=== PATIENT | male | born 1930 | race Caucasian/White ===

== ENCOUNTER 2017-02-01 10:55 | Inpatient (IN) | payer OTHER ==
[~2017-02-01] VITALS: Ht 172.7 cm; Wt 64.2 kg
[~2017-02-01 10:55] MED LIST: ALB2.5NEB INH; ALBU17IN INH; ARTI99.0 OU; FISH1000 PO; GEMF600T PO; GLUC500T53 PO; GUAI20TA PO; LEVA1TAB PO; LEVA1TAB2 PO; LEVO75TA4 PO; LORA10TA2 PO; OMEP20CA3 PO; PRED10PA PO; REFR0.5D8 OU; REFR1DRO8 OU; SILD50TA PO; SPIR1CAP INH; SYMB16INH INH; TEAR1SOL3 OU; VITMTA PO; [UNRECOGNIZED DRUG - CODE] OU
[2017-02-01] MEDS ORDERED: NS 1,000 ML IV SCH (11:06)
[2017-02-01] MEDS ORDERED: METAL LOCK LOOP XX ONE (11:12)
[2017-02-01] MEDS ORDERED: methylPREDNISolone INJ 125 MG/2 ML VIAL (J2930) IV ONE (11:15)
[2017-02-01] MEDS: IPRATROPIUM 0.5MG/ALBUTEROL 2.5MG INH SOL UD 3ML (DUONEB)(J7620) NEB PRN ×3 (11:42→12:04)
--- NOTE | 2017-02-01 11:44 | REP ---
Clinical: Cough and dyspnea. Comparison: 11/20/2015. Findings: Mediastinum and cardiac silhouette are within normal limits and stable. Diffuse chronic interstitial changes and fibrosis/scarring similar to prior examination. Subtle superimposed right upper lobe process cannot be excluded. No pneumothorax. No obvious effusion. Skeletal structures demonstrate osteopenia and degenerative changes. Impression: Chronic changes. Superimposed right upper lobe process cannot be excluded. Signed by Kvng Min MD 02/01/2017 11:35 A
[2017-02-01 11:56] LABS: ABG BASE EXCESS -7.2 (-2.0-2.0); ABG HCO3 16.5 MEQ/L (22.0-26.0); ABG PARTIAL PRESSURE CO2 27.9 mmHg (35.0-45.0); ABG STANDARD HCO3 18.5 MEQ/L (22.0-26.0); ABG TOTAL CO2 17.4 MEQ/L (23.0-31.0); ABG pH (ARTERIAL) 7.391 UNITS (7.350-7.450)
[2017-02-01 11:57] LABS: BASO % 0.4 % (0.0-1.0); EOS # 0.2 10^3/uL (0.0-0.50); EOS % 1.7 % (0.0-3.0); IMMATURE GRANULOCYTE % 0.5 % (0-0); MEAN CORPUSCULAR HEMOGLOBIN 30.8 pg (27.0-33.0); MEAN CORPUSCULAR HGB CONC 32.6 g/dl (32.0-36.5); MEAN CORPUSCULAR VOLUME 94.6 fl (80.0-96.0); MONO # 1.6 10^3/uL (0.0-0.8); MONO % 15.2 % (0.0-5.0); NEUTROPHILS # 6.5 10^3/uL (1.8-7.7); NEUTROPHILS % 63.2 % (36.0-66.0); PLATELET COUNT, AUTOMATED 136 10^3/uL (150-450); RED CELL DISTRIBUTION WIDTH 13.8 % (11.5-14.5); WHITE BLOOD COUNT 10.3 10^3/uL (4.0-10.0)
[2017-02-01 12:08] VITALS: O2SAT 98
[2017-02-01 12:08] LABS: INR 1.26
[2017-02-01 12:36] LABS: ALBUMIN 2.5 GM/DL (3.2-5.2); ALBUMIN/GLOBULIN RATIO 0.47 (1.00-1.93); ALKALINE PHOSPHATASE 233 U/L (45-117); ANION GAP 10 MEQ/L (8-16); AST/SGOT 53 U/L (7-37); BILIRUBIN,DIRECT 0.8 MG/DL (0.0-0.2); BILIRUBIN,TOTAL 1.5 MG/DL (0.2-1.0); BLOOD UREA NITROGEN 31 MG/DL (7-18); CALCIUM LEVEL 8.1 MG/DL (8.8-10.2); CARBON DIOXIDE LEVEL 22 MEQ/L (21-32); CHLORIDE LEVEL 107 MEQ/L (98-107); CREATININE FOR GFR 1.83 MG/DL (0.70-1.30); GLOMERULAR FILTRATION RATE 37.6 (>35); GLUCOSE, FASTING 94 MG/DL (83-110); POTASSIUM SERUM 4.5 MEQ/L (3.5-5.1); SODIUM LEVEL 139 MEQ/L (136-145); TOTAL PROTEIN 7.8 GM/DL (6.4-8.2)
[2017-02-01 12:41] LABS: ALT/SGPT 51 U/L (12-78)
[2017-02-01] MEDS ORDERED: CEFTRIAXONE SOD 1 GM in APPROPRIATE DILUENT 1 EA IV ONE (13:45)
[2017-02-01] MEDS ORDERED: AZITHROMYCIN INJ 500 MG, VIAL MATE ADAPTER 1 EACH in D5W 250 ML IV ONE (13:45)
--- NOTE | 2017-02-01 14:05 | REP ---
CT CHEST WITHOUT CONTRAST: HISTORY: Right upper lobe mass. Comparison chest CT studies November 20, 2015. Comparison is made with today's portable chest x-ray showing density in the right upper lobe region. FINDINGS: There is progressive collapse and peribronchial consolidation in the right upper lobe superiorly when compared with the CT study from November 20, 2015. Air bronchograms are seen and there is evidence of bronchiectasis in the right upper lobe. There is some increased subpleural consolidation as well posteriorly compared to the prior study. The infiltrate observed laterally in the left upper lobe on the November 24, 2015 study has resolved except for some subpleural fibrosis and a triangular configuration. There is evidence of COPD and emphysema as before. The trachea is somewhat enlarged measuring up to 2.9 cm in greatest AP dimension. This is unchanged. No significant pulmonary nodule is appreciated. No bony destructive lesion is seen. No adrenal lesion is observed. A fairly large calcified gallstone is seen in the gallbladder. The stone measures 1.4 cm in diameter. There are one or two granulomatous calcifications in the spleen. Vascular calcification is seen affecting the coronary arteries. IMPRESSION: Increased consolidation and some collapse in a leslie-bronchovascular distribution in the right upper lobe compared to the November 20, 2015 prior study. The appearance suggests inflammatory disease. There is evidence of bronchiectasis and COPD. The trachea is mildly enlarged. Cholelithiasis. Signed by Jani Anguiano MD 02/01/2017 02:47 P
[2017-02-01] MEDS ORDERED: NS 1,000 ML IV ONE (14:15)
[2017-02-01] MEDS ORDERED: TYLE325T5 PO (14:27)
[2017-02-01] MEDS ORDERED: ATOR40TA75 PO (14:27)
--- NOTE | 2017-02-01 14:44 | HPEPDOC ---
[facility] Medical History & Physical Date of Admission Feb 01, 2017 History and Physical ATTENDING: Dr. Haile PCP: Dr [facility] Pulmonary. Dr Jarrell. Cardiology. Dr Flores. Rheumatology. [facility] [place]. CC: SOB HPI: 86yoM with a past medical history significant for COPD, h/o pneumonia, prior tobacco use who presented to ED from reporting SOB. Pt reports he had gone to visit family on and there were children with "colds". He states the following day he felt sick, with SOB, productive cough which has been yellow-green, intermittent fever since last Monday (100.2- 100.7). Noticed some anterior CP today. Generally feeling fatigued. Son states he is usually active at home, cuts own wood, goes hunting, ADLS on own. Denies any VEGA, palpitations, abdominal pain, N/V/D or changes in bowel or bladder habits. Upon presentation to the hospital the patient was found to have CAP, thus the hospitalist team was consulted. PMHx: COPD H/O recurrent Pn hypothyroid Seasonal allergies RA GERD Anemia Chronic disease First degree AVB H/O PUD [place], wears aids. edentulous. poor appetite. Ensure at home. 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 4 related to Ca Children: 3Alive, well. 2 , [employer] [place], Cirrhosis. ROS: As noted in HPI, otherwise 11pt ROS of systems reviewed and unremarkable. PE: GEN: 86yoM, appears stated age. Unkept appearing. No acute distress. Alert and oriented x 3. Pleasant, interactive. HEENT: Normocephalic, atraumatic. Pupils are equal, round, and reactive to light. Extraocular movements are intact. No nystagmus appreciated. Sclera are nonicteric. Conjunctiva without injection. Nose midline. Hearing aids b/l. No facial asymmetry. Moist mucous membranes. edentulous . Pharynx pink and moist. Neck supple, trachea midline. No lymphadenopathy or thyromegaly appreciated. CHEST: Regular rate and rhythm, +S1, +S2 LUNGS: Decreased BS bilaterally with insp/exp wheezes diffusely, no rales, or rhonchi. No accessory muscle use. ABD: Round, soft, non-tender, non-distended. +Bowel sounds throughout. No rebound or guarding. No costovertebral angle tenderness. EXT: Pulses 2+ bilaterally dorsalis pedis and radial. No lower extremity edema appreciated. SKIN: [place], dry, warm. Capillary refill <2sec. No rashes. NEURO: Alert and oriented x 3. Cranial nerves III-XII are intact. No focal deficits appreciated. CXR: Chronic changes. Superimposed right upper lobe process cannot be excluded. CT: Chest Increased consolidation and some collapse in a peribronchovascular distribution in the right upper lobe compared to the November 20, 2015 prior study. The appearance suggests inflammatory disease. There is evidence of bronchiectasis and COPD. The trachea is mildly enlarged. Cholelithiasis. EKG: SR 74 bpm. BLOOD CULTURES: x2 pending SC pending. Rapid Flu neg. LA 1.6 A&P: 86yoM with a past medical history significant for COPD, h/o pneumonia, prior tobacco use who presented to ED from reporting SOB. Pt reports he had gone to visit family on and there were children with "colds". He states the following day he felt sick, with SOB, productive cough which has been yellow-green, intermittent fever since last Monday (100.2- 100.7). Noticed some anterior CP today. Generally feeling fatigued. 1. The patient will be admitted to M/S for at least [address] Haile 's service. Pt is discussed with Dr Boucher. 2. CAP. BC x 2 pending. SC pending. Add Respiratory panel. Supplemental O2. Nebs. IV Rocephin/Z max. 3. COPD/COPD exac. O2 as needed. Nebs. IV solumedrol in ED 125mg. Continue Solumedrol 60mg Q8hr. 4. Chest pain. Serial CIP/Troponin. Cont statin. 5. Hypothyroid. Supplement. 6. Seasonal allergies. Claritin. 7. GERD. PPI. 8. HLD. Statin. 9. CKD. prior baseline in system appears to be 1.4-1.6. IVF x 1 liter in ED. 1.83 currently. Monitor labs. 10. Poor po intake. Supplements with ensure 3 x per day at home, will continue. Request nutrition Clt. BMI 21.5. 11. Anemia of chronic disease. Appears to be at baseline Hgb 9-10. Monitor daily labs. 12. DVT prophylaxis. Lovenox renally dosed. Monitor CBC. 13. Elevated LFT. Add hepatitis profile. The patient is a Full code. Vital Signs Vital Signs Date Time Temp Pulse Resp B/P (MAP) Pulse Ox O2 Delivery O2 Flow Rate FiO2 02/01/17 14:17 84 97 02/01/17 14:02 119/59 (79) 02/01/17 13:32 98.7 18 Room Air Laboratory Data Labs 24H Laboratory Tests 2 02/01/17 11:40: Immature Granulocyte % (Auto) 0.5H, White Blood Count 10.3H, Red Blood Count 3.15L, Hemoglobin 9.7L, Hematocrit 29.8L, Mean Corpuscular Volume 94.6, Mean Corpuscular Hemoglobin 30.8, Mean Corpuscular Hemoglobin Concent 32.6, Red Cell Distribution Width 13.8, Platelet Count 136L, Neutrophils (%) (Auto) 63.2, Lymphocytes (%) (Auto) 19.0L, Monocytes (%) (Auto) 15.2H, Eosinophils (%) (Auto ) 1.7, Basophils (%) (Auto) 0.4, Neutrophils # (Auto) 6.5, Lymphocytes # (Auto) 2.0, Monocytes # (Auto) 1.6H, Eosinophils # (Auto) 0.2, Basophils # (Auto) 0.0, Immature Granulocyte # (Auto) 0.1H, Nucleated Red Blood Cells % (auto) 0.0, Prothrombin Time 16.1H, Prothromb Time International Ratio 1.26, Anion Gap 10, Glomerular Filtration Rate 37.6, Lactic Acid Level 1.6, Calcium Level 8.1L, Aspartate Amino Transf (AST/SGOT) 53H, Alanine Aminotransferase (ALT/SGPT) 51, Alkaline Phosphatase 233H, Total Bilirubin 1.5H, Direct Bilirubin 0.8H, Total Creatine Kinase 138, Creatine Kinase MB 1.3, Creatine Kinase MB Relative Index 0.94, Troponin I < 0.02, Total Protein 7.8, Albumin 2.5L, Albumin/Globulin Ratio 0.47L, Thyroid Stimulating Hormone (TSH) 1.060 02/01/17 11:43: Blood Gas Bicarbonate Standard 18.5L, Arterial Blood pH 7.391, Arterial Blood Partial Pressure CO2 27.9L, Arterial Blood Partial Pressure O2 73.0L, Arterial Blood Total CO2 17.4L, Arterial Blood HCO3 16.5L, Arterial Blood Base Excess - 7.2L, Arterial Blood Oxygen Saturation 94.7L CBC/BMP Laboratory Tests 02/01/17 11:40 Red Blood Count 3.15 L, Mean Corpuscular Volume 94.6, Mean Corpuscular Hemoglobin 30.8, Mean Corpuscular Hemoglobin Concent 32.6, Red Cell Distribution Width 13.8, Neutrophils (%) (Auto) 63.2, Lymphocytes (%) (Auto) 19.0 L, Monocytes (%) (Auto) 15.2 H, Eosinophils (%) (Auto) 1.7, Basophils (%) ( Auto) 0.4, Neutrophils # (Auto) 6.5, Lymphocytes # (Auto) 2.0, Monocytes # (Auto ) 1.6 H, Eosinophils # (Auto) 0.2, Basophils # (Auto) 0.0 Microbiology Microbiology 02/01/17 Blood Culture, Received Pending 02/01/17 Blood Culture, Received Pending 02/01/17 Gram Stain, Received Pending 02/01/17 Sputum Culture, Received Pending 02/01/17 Influenza Virus Type A Antigen - Final, Complete 02/01/17 Influenza Virus Type B Antigen - Final, Complete Home Medications Scheduled Atorvastatin Calcium (Atorvastatin Calcium) 40 Mg Tab, 40 MG PO QHS Budesonide/Formoterol (Symbicort 160-4.5 Mcg/Act) 60 Puff/Inhaler Aers, 2 PUFF INH BID Carboxymethylcellulose Sod (Refresh 1.4-0.6 %) 1 Ea Ana, 1 DROP OU QHS Fish Oil (Fish Oil) 1,000 Mg Cap, 2,000 MG PO DAILY Glucosamine Hydrochloride (Glucosamine) 500 Mg Tab, 1,000 MG PO DAILY Levothyroxine Sodium (Synthroid) 75 Mcg Tab, 75 MCG PO DAILY Loratadine (Loratadine) 10 Mg Tab, 10 MG PO DAILY Multivitamins *[facility] STOCKED* (Thera M Plus *[facility] STOCKED*) 1 Tab Tab, 1 TAB PO DAILY Omeprazole (Omeprazole) 20 Mg Cap, 20 MG PO BID Scheduled PRN Acetaminophen (Tylenol) 325 Mg Tab, 325 MG PO Q4H PRN for PAIN Albuterol Sulfate (Albuterol Sulfate) 2.5 Mg/0.5 Ml Neb, 2.5 MG INH QID PRN for SHORTNESS OF BREATH Albuterol Sulfate (Ventolin Hfa) 200 Puff/8 Gm Aers, 2 PUFF INH Q4H PRN for SHORTNESS OF BREATH Artificial Tears (Artificial Tears) 1.4 % Ana, 1 DROP OU QID PRN for DRY EYES Sildenafil Citrate (Viagra) 50 Mg Tab, 50 MG PO PRN PRN for SEXUAL ACTIVITY Allergies Coded Allergies: No Known Allergies (Verified , 09/09/02) Aditi Landon Feb 01, 2017 14:44
[2017-02-01] MEDS ORDERED: IPRATROPIUM 0.5MG/ALBUTEROL 2.5MG INH SOL UD 3ML (DUONEB)(J7620) NEB PRN (15:30)
[2017-02-01] MEDS ORDERED: ACETAMINOPHEN TAB 650MG DOSE (2X325MG) PO PRN (15:30)
[2017-02-01] MEDS ORDERED: POLYVINYL ALCOHOL OPHTH SOLN 15 ML(LIQUITEARS) OU PRN (15:30)
[2017-02-01 15:40] VITALS: BP 126/64
[2017-02-01] MEDS: IPRATROPIUM 0.5MG/ALBUTEROL 2.5MG INH SOL UD 3ML (DUONEB)(J7620) NEB SCH ×2 (17:14→20:00)
[2017-02-01] MEDS: ATORVASTATIN 20 MG TAB PO SCH (20:38)
[2017-02-01] MEDS: OMEPRAZOLE 20 MG CAP PO SCH (20:38)
--- NOTE | 2017-02-01 20:40 | ECGEPIP ---
Stationary ECG Study [facility] - ED Test Date: 2017-02-01 Pat Name: NICOLAS TINSLEY Department: Room: - Gender: M Surgical Specialist: gisselle : [id number] Requested By: Chloe Garduno Order Number: [id number] Reading MD: Chloe Garduno Measurements Intervals [place] Rate: 74 P: 76 NM: 182 QRS: 52 QRSD: 78 T: 61 QT: 352 QTc: 392 Interpretive Statements SINUS RHYTHM SIMILAR 11/20/15 Electronically Signed On 02-01-2017 20:40:15 EST by Chloe Garduno
[2017-02-01] MEDS: ENOXAPARIN 30 MG/0.3 ML SYR (J1650) SC SCH (20:41)
[2017-02-01] MEDS: methylPREDNISolone INJ 125 MG/2 ML VIAL (J2930) IV SCH (20:48)
[2017-02-01 22:00] VITALS: BP 126/56
[2017-02-02] MEDS: IPRATROPIUM 0.5MG/ALBUTEROL 2.5MG INH SOL UD 3ML (DUONEB)(J7620) NEB SCH ×6 (01:15→20:00)
[2017-02-02] MEDS: LEVOTHYROXINE 75MCG TABLET (0.075MG) PO SCH (04:34)
[2017-02-02] MEDS: methylPREDNISolone INJ 125 MG/2 ML VIAL (J2930) IV SCH ×3 (04:34→20:00)
[2017-02-02 06:00] VITALS: BP 119/63
[2017-02-02 06:52] LABS: BASO % 0.1 % (0.0-1.0); IMMATURE GRANULOCYTE % 2.2 % (0-0); LYMPH # 1.6 10^3/uL (1.5-4.5); LYMPH % 16.4 % (24.0-44.0); MEAN CORPUSCULAR HEMOGLOBIN 30.3 pg (27.0-33.0); MEAN CORPUSCULAR HGB CONC 32.7 g/dl (32.0-36.5); MEAN CORPUSCULAR VOLUME 92.7 fl (80.0-96.0); MONO # 0.7 10^3/uL (0.0-0.8); MONO % 6.6 % (0.0-5.0); NEUTROPHILS # 7.3 10^3/uL (1.8-7.7); NEUTROPHILS % 74.7 % (36.0-66.0); PLATELET COUNT, AUTOMATED 124 10^3/uL (150-450); RED CELL DISTRIBUTION WIDTH 13.7 % (11.5-14.5); WHITE BLOOD COUNT 9.8 10^3/uL (4.0-10.0)
[2017-02-02 07:21] LABS: ALBUMIN/GLOBULIN RATIO 0.36 (1.00-1.93); BILIRUBIN,TOTAL 0.4 MG/DL (0.2-1.0); CALCIUM LEVEL 7.9 MG/DL (8.8-10.2); CREATININE FOR GFR 1.56 MG/DL (0.70-1.30); GLOMERULAR FILTRATION RATE 45.1 (>35); POTASSIUM SERUM 4.3 MEQ/L (3.5-5.1); TOTAL PROTEIN 7.6 GM/DL (6.4-8.2)
[2017-02-02] MEDS: LORATADINE 10 MG TAB PO SCH (08:32)
[2017-02-02] MEDS: OMEPRAZOLE 20 MG CAP PO SCH ×2 (08:32→20:00)
--- NOTE | 2017-02-02 10:10 | IPNPDOC ---
Date Seen The patient was seen on 02/02/17. Progress Note SUBJECTIVE: Patient is a 86-year-old male with past medical history of : COPD; history of recurrent pneumonia; hypothyroidism; seasonal allergies; rheumatoid arthritis; GERD; anemia of chronic disease; first degree AV heart block; history of PUD; hard of hearing, wears hearing aids; edentulous; poor appetite, Ensure at home; CKD; presenting with shortness of breath on 2016. Today, he was seen bedside and initially stated he had no complaints. He states he is not certain why he is still in the hospital. He does complain of some shortness of breath and chest pain when coughing, but not at rest. He states he does have some lightheadedness upon standing, but denies lightheadedness/dizziness when seated, when lying down, and once he gets moving. He denies headache, difficulty breathing, abdominal pain, nausea, vomiting. OBJECTIVE PHYSICAL EXAMINATION: VITAL SIGNS: Please see below. GENERAL: Elderly male seated on edge of bed in no apparent distress. HEENT: Atraumatic, normocephalic. EOMI. Neck supple CARDIOVASCULAR: Normal S1/S2, no rubs, murmurs, gallops noted. RESPIRATORY: Clear to auscultation in all sin bilaterally ABDOMINAL: Soft, non-tender, no peritoneal signs, normoactive bowel sounds EXTREMITIES: Moves all extremities. No appreciated peripheral edema NEUROLOGICAL: CN II-XII grossly intact PSYCHOLOGICAL: Pleasant mood and affect. Alert and conversant. LABORATORY DATA: Please see below. MICROBIOLOGY: Please see below. IMAGING: Chest X-Ray Impression: Chronic changes. Superimposed right upper lobe process cannot be excluded. Chest CT Impression: Increased consolidation and some collapse in a leslie-bronchovascular distribution in the right upper lobe compared to the November 20, 2015 prior study. The appearance suggests inflammatory disease. There is evidence of bronchiectasis and COPD. The trachea is mildly enlarged. Cholelithiasis. DVT prophylaxis ordered?: Yes, Lovenox 30mg subcutaneous every day ASSESSMENT AND PLAN: This is a 86-year-old with community-acquired pneumonia. PROBLEMS: 1. Community acquired pneumonia: - Blood cultures x2 still pending - Sputum culture pending. - Respiratory panel negative for influenza A & B - Azithromycin 500mg IV every day - Ceftriaxone 2g every IV every day 3. COPD/COPD exacerbation - Oxygen as needed. - Duoneb every 4 hours - Duoneb every 2 hours as needed for shortness of breath or wheezing - Methylprednisolone 60mg IV every 8 hours 4. Chest pain. - Serial troponins have all been negative 5. Elevated LFT - Hepatitis panel pending 6. Hyperlipidemia - Atorvastatin 40 mg by mouth every day at bedtime 7. Hypothyroid - Levothyroxine 75 mcg by mouth every day at 0600. 8. Seasonal allergies - Loratadine 10 mg by mouth every day 9. GERD - Omeprazole 20mg by mouth twice per day 10. CKD - Prior baseline in system appears to be 1.4-1.6. - Creatinine decreased from 1.83 to 1.56. 11. Poor PO intake - Supplements with ensure 3 x per day at home, will continue - Nutrition consult. Appreciate their recommendations: Ensure original with each meal, monitoring meal consumption. If meal consumption is decreased, trial ensure enlive between meals to promote whole food intake during meal times 12. Anemia of chronic disease - Appears to be at baseline Hgb 9-10 - Monitor daily labs 13. DVT prophylaxis - Lovenox renally dosed - Monitor CBC DISPOSITION: Medical-surgical, pending discharge likely tomorrow. VS, I&O, 24H, [facility] Vital Signs/I&O Vital Signs Date Time Temp Pulse Resp B/P (MAP) Pulse Ox O2 Delivery O2 Flow Rate FiO2 02/02/17 06:00 97.5 78 18 119/63 (81) 96 Room Air I&O- Last 24 Hours up to 6 AM 02/03/17 06:00 Intake Total 240 ml Output Total 0 ml Balance 240 ml Laboratory Data 24H LABS Laboratory Tests 2 02/01/17 11:40: Immature Granulocyte % (Auto) 0.5H, White Blood Count 10.3H, Red Blood Count 3.15L, Hemoglobin 9.7L, Hematocrit 29.8L, Mean Corpuscular Volume 94.6, Mean Corpuscular Hemoglobin 30.8, Mean Corpuscular Hemoglobin Concent 32.6, Red Cell Distribution Width 13.8, Platelet Count 136L, Neutrophils (%) (Auto) 63.2, Lymphocytes (%) (Auto) 19.0L, Monocytes (%) (Auto) 15.2H, Eosinophils (%) (Auto ) 1.7, Basophils (%) (Auto) 0.4, Neutrophils # (Auto) 6.5, Lymphocytes # (Auto) 2.0, Monocytes # (Auto) 1.6H, Eosinophils # (Auto) 0.2, Basophils # (Auto) 0.0, Immature Granulocyte # (Auto) 0.1H, Nucleated Red Blood Cells % (auto) 0.0, Prothrombin Time 16.1H, Prothromb Time International Ratio 1.26, Anion Gap 10, Glomerular Filtration Rate 37.6, Lactic Acid Level 1.6, Calcium Level 8.1L, Aspartate Amino Transf (AST/SGOT) 53H, Alanine Aminotransferase (ALT/SGPT) 51, Alkaline Phosphatase 233H, Total Bilirubin 1.5H, Direct Bilirubin 0.8H, Total Creatine Kinase 138, Creatine Kinase MB 1.3, Creatine Kinase MB Relative Index 0.94, Troponin I < 0.02, Total Protein 7.8, Albumin 2.5L, Albumin/Globulin Ratio 0.47L, Thyroid Stimulating Hormone (TSH) 1.060 02/01/17 11:43: Blood Gas Bicarbonate Standard 18.5L, Arterial Blood pH 7.391, Arterial Blood Partial Pressure CO2 27.9L, Arterial Blood Partial Pressure O2 73.0L, Arterial Blood Total CO2 17.4L, Arterial Blood HCO3 16.5L, Arterial Blood Base Excess - 7.2L, Arterial Blood Oxygen Saturation 94.7L 02/01/17 18:03: Total Creatine Kinase 208, Creatine Kinase MB 2.7, Creatine Kinase MB Relative Index 1.29, Troponin I < 0.02 02/02/17 01:59: Total Creatine Kinase 273, Creatine Kinase MB 5.0H, Creatine Kinase MB Relative Index 1.83, Troponin I < 0.02 02/02/17 06:38: Immature Granulocyte % (Auto) 2.2H, White Blood Count 9.8, Red Blood Count 2.74L , Hemoglobin 8.3L, Hematocrit 25.4L, Mean Corpuscular Volume 92.7, Mean Corpuscular Hemoglobin 30.3, Mean Corpuscular Hemoglobin Concent 32.7, Red Cell Distribution Width 13.7, Platelet Count 124L, Neutrophils (%) (Auto) 74.7H, Lymphocytes (%) (Auto) 16.4L, Monocytes (%) (Auto) 6.6H, Eosinophils (%) (Auto) 0.0, Basophils (%) (Auto) 0.1, Neutrophils # (Auto) 7.3, Lymphocytes # (Auto) 1.6, Monocytes # (Auto) 0.7, Eosinophils # (Auto) 0.0, Basophils # (Auto) 0.0, Immature Granulocyte # (Auto) 0.2H, Nucleated Red Blood Cells % (auto) 0.0, Anion Gap 10, Glomerular Filtration Rate 45.1, Blood Urea Nitrogen 34H, Creatinine 1.56H, Sodium Level 143, Potassium Level 4.3, Chloride Level 113H, Carbon Dioxide Level 20L, Calcium Level 7.9L, Aspartate Amino Transf (AST/SGOT) 75H, Alanine Aminotransferase (ALT/SGPT) 57, Alkaline Phosphatase 181H, Total Bilirubin 0.4#, Total Protein 7.6, Albumin 2.0L, Albumin/Globulin Ratio 0.36L CBC/BMP Laboratory Tests 02/01/17 11:40 Red Blood Count 3.15 L, Mean Corpuscular Volume 94.6, Mean Corpuscular Hemoglobin 30.8, Mean Corpuscular Hemoglobin Concent 32.6, Red Cell Distribution Width 13.8, Neutrophils (%) (Auto) 63.2, Lymphocytes (%) (Auto) 19.0 L, Monocytes (%) (Auto) 15.2 H, Eosinophils (%) (Auto) 1.7, Basophils (%) ( Auto) 0.4, Neutrophils # (Auto) 6.5, Lymphocytes # (Auto) 2.0, Monocytes # (Auto ) 1.6 H, Eosinophils # (Auto) 0.2, Basophils # (Auto) 0.0 02/02/17 06:38 Red Blood Count 2.74 L, Mean Corpuscular Volume 92.7, Mean Corpuscular Hemoglobin 30.3, Mean Corpuscular Hemoglobin Concent 32.7, Red Cell Distribution Width 13.7, Neutrophils (%) (Auto) 74.7 H, Lymphocytes (%) (Auto) 16.4 L, Monocytes (%) (Auto) 6.6 H, Eosinophils (%) (Auto) 0.0, Basophils (%) ( Auto) 0.1, Neutrophils # (Auto) 7.3, Lymphocytes # (Auto) 1.6, Monocytes # (Auto ) 0.7, Eosinophils # (Auto) 0.0, Basophils # (Auto) 0.0, Calcium Level 7.9 L, Aspartate Amino Transf (AST/SGOT) 75 H, Alanine Aminotransferase (ALT/SGPT) 57, Alkaline Phosphatase 181 H, Total Bilirubin 0.4 #, Total Protein 7.6, Albumin 2.0 L Microbiology Microbiology 02/01/17 Blood Culture, Received Pending 02/01/17 Blood Culture, Received Pending 02/01/17 Gram Stain - Final, Resulted 02/01/17 Sputum Culture, Resulted Pending 02/01/17 Influenza Virus Type A Antigen - Final, Complete 02/01/17 Influenza Virus Type B Antigen - Final, Complete TAWANNA IRVIN DO Feb 02, 2017 09:01
[2017-02-02 14:00] VITALS: BP_SYST 104; BP_SYST 121; BP_DIAS 58; BP_DIAS 61
[2017-02-02] MEDS ORDERED: CEFTRIAXONE SOD 2 GM in APPROPRIATE DILUENT 1 EA IV SCH (14:00)
[2017-02-02] MEDS ORDERED: AZITHROMYCIN INJ 500 MG, VIAL MATE ADAPTER 1 EACH in D5W 250 ML IV SCH (15:00)
[2017-02-02] MEDS: ATORVASTATIN 20 MG TAB PO SCH (20:00)
[2017-02-02] MEDS: ENOXAPARIN 30 MG/0.3 ML SYR (J1650) SC SCH (20:01)
[2017-02-02 22:00] VITALS: BP 113/73
[2017-02-03] MEDS: IPRATROPIUM 0.5MG/ALBUTEROL 2.5MG INH SOL UD 3ML (DUONEB)(J7620) NEB SCH ×3 (04:00→07:25)
[2017-02-03] MEDS: methylPREDNISolone INJ 125 MG/2 ML VIAL (J2930) IV SCH (05:13)
[2017-02-03] MEDS: LEVOTHYROXINE 75MCG TABLET (0.075MG) PO SCH (05:13)
[2017-02-03 06:00] VITALS: BP 128/66
[2017-02-03] MEDS ORDERED: BACITAB PO (07:12)
[2017-02-03] MEDS ORDERED: AVEL1TAB3 PO (07:12)
[2017-02-03] MEDS ORDERED: MOXIFLOXACIN 400 MG TAB PO ONE (07:15)
[2017-02-03 07:47] LABS: BASO % 0.2 % (0.0-1.0); IMMATURE GRANULOCYTE % 1.9 % (0-0); LYMPH # 1.8 10^3/uL (1.5-4.5); LYMPH % 14.1 % (24.0-44.0); MEAN CORPUSCULAR HGB CONC 33.3 g/dl (32.0-36.5); MONO # 0.7 10^3/uL (0.0-0.8); MONO % 5.1 % (0.0-5.0); NEUTROPHILS # 10.2 10^3/uL (1.8-7.7); NEUTROPHILS % 78.7 % (36.0-66.0); PLATELET COUNT, AUTOMATED 143 10^3/uL (150-450); RETIC HEMOGLOBIN EQUIVALENT 26.3 pg (24-36); RETICULOCYTE % 0.9 % (0.5-1.5)
[2017-02-03 08:12] LABS: REASON FOR REVIEW COMPREHENSIVE REVIEW
[2017-02-03 08:21] LABS: ALBUMIN 2.2 GM/DL (3.2-5.2); ALBUMIN/GLOBULIN RATIO 0.39 (1.00-1.93); ALKALINE PHOSPHATASE 185 U/L (45-117); ALT/SGPT 209 U/L (12-78); ANION GAP 8 MEQ/L (8-16); AST/SGOT 304 U/L (7-37); BILIRUBIN,TOTAL 0.3 MG/DL (0.2-1.0); BLOOD UREA NITROGEN 40 MG/DL (7-18); CALCIUM LEVEL 8.2 MG/DL (8.8-10.2); CARBON DIOXIDE LEVEL 20 MEQ/L (21-32); CHLORIDE LEVEL 114 MEQ/L (98-107); CREATININE FOR GFR 1.78 MG/DL (0.70-1.30); FERRITIN 1659 NG/ML (26-388); GLOMERULAR FILTRATION RATE 38.8 (>35); GLUCOSE, FASTING 120 MG/DL (83-110); PERCENT SATURATION 67.4 % (19.7-50.0); POTASSIUM SERUM 4.5 MEQ/L (3.5-5.1); SODIUM LEVEL 142 MEQ/L (136-145); TOTAL IRON BINDING CAPACITY 144 UG/DL (250-450); TOTAL PROTEIN 7.8 GM/DL (6.4-8.2)
[2017-02-03] MEDS: LORATADINE 10 MG TAB PO SCH (08:46)
[2017-02-03] MEDS: OMEPRAZOLE 20 MG CAP PO SCH (08:46)
[2017-02-03] MEDS ORDERED: PRED10TA2 PO (09:37)
[2017-02-03 09:48] LABS: VITAMIN B12 LEVEL > 2000 PG/ML (247-911)
[2017-02-03 09:49] LABS: FOLATE 20.6 NG/ML (>5.4)
[2017-02-03] MEDS ORDERED: LEVA1TAB2 PO (11:23)
--- NOTE | 2017-02-03 13:21 | DS.PDOC ---
Discharge Summary General Date of Admission Feb 01, 2017 at 15:28 Date of Discharge 02/03/2017 Primary Care Physician: Tarun Post Attending Physician: KALEB VIVAS MD Discharge Summary PROCEDURES PERFORMED DURING STAY: None. ADMITTING DIAGNOSES: 1. Community-acquired pneumonia. 2. COPD exacerbation. DISCHARGE DIAGNOSES: 1. Community-acquired pneumonia. 2. COPD exacerbation. COMPLICATIONS/CHIEF COMPLAINT: Pneumonia. HISTORY OF PRESENT ILLNESS: 86yoM with a past medical history significant for COPD, h/o pneumonia, prior tobacco use who presented to ED from reporting SOB. Pt reports he had gone to visit family on and there were children with "colds". He states the following day he felt sick, with SOB, productive cough which has been yellow-green, intermittent fever since last Monday (100.2-100.7). Noticed some anterior CP today. Generally feeling fatigued. Son states he is usually active at home, cuts own wood, goes hunting , ADLS on own. Denies any VEGA, palpitations, abdominal pain, N/V/D or changes in bowel or bladder habits. Upon presentation to the hospital the patient was found to have CAP, thus the hospitalist team was consulted. HOSPITAL COURSE: Patient was admitted. Blood cultures (negative) sputum culture (positive for gram + cocci in clusters and chains, gram - cocci, and gram - rods), influenza screen (negative), and respiratory panel (negative) were obtained. Labs including daily CBC, BMP were obtained. Worsening anemia which was evaluated with a peripheral blood smear (normocytic anemia), vitamin B12 level (> 2000), folate level (which was normal), and reticulocyte count ( which was normal). Hepatitis screen was negative. LFTs were obtained and were elevated, likely secondary to hepatic congestion related to congestive heart failure exacerbation. Serial cardiac markers were obtained and were negative. Chest X-Ray and CT were obtained with results reported below. Patient was started on appropriate antibiotics for community acquired pneumonia. At discharge he was switched to seven more days of Levofloxacin. Steroids were started for COPD exacerbation. Home medications were continued for COPD, dyslipidemia, seasonal allergies. Patient improved clinically during admission and was stable at time of discharge. DISCHARGE MEDICATIONS: Please see below. ALLERGIES: Please see below. PHYSICAL EXAMINATION ON DISCHARGE: VITAL SIGNS: Please see below. GENERAL: Elderly male seated on edge of bed in no apparent distress HEENT: Atraumatic, normocephalic, EOMI NECK: Supple CARDIOVASCULAR: Normal S1/S2, no rubs, murmurs, gallops noted. RESPIRATORY: Clear to auscultation in all sin bilaterally ABDOMINAL: Soft, non-tender, no peritoneal signs, normoactive bowel sounds EXTREMITIES: Moves all extremities. No appreciated peripheral edema SKIN: Warm and dry NEUROLOGICAL: CN II-XII grossly intact PSYCHOLOGICAL: Pleasant mood and affect. Alert and conversant. LABORATORY DATA: Please see below. IMAGING: Chest X-Ray Impression: Chronic changes. Superimposed right upper lobe process cannot be excluded. Chest CT Impression: Increased consolidation and some collapse in a leslie-bronchovascular distribution in the right upper lobe compared to the November 20, 2015 prior study. The appearance suggests inflammatory disease. There is evidence of bronchiectasis and COPD. The trachea is mildly enlarged. Cholelithiasis. PROGNOSIS: Stable. ACTIVITY: As tolerated. DIET: No added salt. DISCHARGE PLAN: Problem: Managing health at home Goal: Improve health & wellness Instructions: Follow DC Instruction DISPOSITION: Home. DISCHARGE INSTRUCTIONS: 1. Complete the tapering dose of Prednisone. 2. Complete the course of antibiotics. 3. Follow-up with your primary care provider, Dr. Post, in 7 days. ITEMS TO FOLLOWUP ON ON OUTPATIENT: 1. Pneumonia. 2. Chronic obstructive pulmonary disease. DISCHARGE CONDITION: Stable. TIME SPENT ON DISCHARGE: Greater than 30 minutes. Vital Signs/I&Os Vital Signs Date Time Temp Pulse Resp B/P (MAP) Pulse Ox O2 Delivery O2 Flow Rate FiO2 02/03/17 06:00 97.5 65 18 128/66 (86) 95 Room Air Laboratory Data Labs 24H Laboratory Tests 2 02/02/17 10:01: Total Creatine Kinase 416H, Creatine Kinase MB 8.7H, Creatine Kinase MB Relative Index 2.09, Troponin I < 0.02 02/03/17 07:36: Immature Granulocyte % (Auto) 1.9H, White Blood Count 13.0H, Red Blood Count 2.87L, Hemoglobin 8.9L, Hematocrit 26.7L, Mean Corpuscular Volume 93.0, Mean Corpuscular Hemoglobin 31.0, Mean Corpuscular Hemoglobin Concent 33.3, Red Cell Distribution Width 14.0, Platelet Count 143L, Neutrophils (%) (Auto) 78.7H, Lymphocytes (%) (Auto) 14.1L, Monocytes (%) (Auto) 5.1H, Eosinophils (%) (Auto) 0.0, Basophils (%) (Auto) 0.2, Neutrophils # (Auto) 10.2H, Lymphocytes # (Auto) 1.8, Monocytes # (Auto) 0.7, Eosinophils # (Auto) 0.0, Basophils # (Auto) 0.0, Immature Granulocyte # (Auto) 0.3H, Reticulocyte # (auto) 25.8, Nucleated Red Blood Cells % (auto) 0.0, Percent Reticulocyte Count 0.9, Reticulocyte Hemoglobin Equivalent 26.3 CBC/BMP Laboratory Tests 02/03/17 07:36 Red Blood Count 2.87 L, Mean Corpuscular Volume 93.0, Mean Corpuscular Hemoglobin 31.0, Mean Corpuscular Hemoglobin Concent 33.3, Red Cell Distribution Width 14.0, Neutrophils (%) (Auto) 78.7 H, Lymphocytes (%) (Auto) 14.1 L, Monocytes (%) (Auto) 5.1 H, Eosinophils (%) (Auto) 0.0, Basophils (%) ( Auto) 0.2, Neutrophils # (Auto) 10.2 H, Lymphocytes # (Auto) 1.8, Monocytes # ( Auto) 0.7, Eosinophils # (Auto) 0.0, Basophils # (Auto) 0.0 Microbiology Microbiology 02/01/17 Blood Culture - Preliminary, Resulted No growth after 24 hours . All specim... 02/01/17 Blood Culture - Preliminary, Resulted No growth after 24 hours . All specim... 02/01/17 Gram Stain - Final, Resulted 02/01/17 Sputum Culture, Resulted Pending 02/01/17 Influenza Virus Type A Antigen - Final, Complete 02/01/17 Influenza Virus Type B Antigen - Final, Complete 02/01/17 Respiratory Virus Panel (PCR) (SARI) - Final, Complete Discharge Medications Scheduled Atorvastatin Calcium (Atorvastatin Calcium) 40 Mg Tab, 40 MG PO QHS, (Reported) Budesonide/Formoterol (Symbicort 160-4.5 Mcg/Act) 60 Puff/Inhaler Aers, 2 PUFF INH BID, (Reported) Carboxymethylcellulose Sod (Refresh 1.4-0.6 %) 1 Ea Ana, 1 DROP OU QHS, ( Reported) Fish Oil (Fish Oil) 1,000 Mg Cap, 2,000 MG PO DAILY, (Reported) Glucosamine Hydrochloride (Glucosamine) 500 Mg Tab, 1,000 MG PO DAILY, (Reported ) Lactobacillus Acidophilus (Bacid) 1 Tab Tab, 1 TAB PO BID Levofloxacin Hemihydrate (Levaquin) 500 Mg Tab, 500 MG PO DAILY Levothyroxine Sodium (Synthroid) 75 Mcg Tab, 75 MCG PO DAILY, (Reported) Loratadine (Loratadine) 10 Mg Tab, 10 MG PO DAILY, (Reported) Multivitamins *[facility] STOCKED* (Thera M Plus *[facility] STOCKED*) 1 Tab Tab, 1 TAB PO DAILY, (Reported) Omeprazole (Omeprazole) 20 Mg Cap, 20 MG PO BID, (Reported) Prednisone (Prednisone) 10 Mg Tab, 10 MG PO TAPER Take 4 tabs daily x 3 days, then 3 tabs daily x 3 days, then 2 tabs daily x 3 days, then 1 tab daily x 3 days and stop Scheduled PRN Acetaminophen (Tylenol) 325 Mg Tab, 325 MG PO Q4H PRN for PAIN, (Reported) Albuterol Sulfate (Albuterol Sulfate) 2.5 Mg/0.5 Ml Neb, 2.5 MG INH QID PRN for SHORTNESS OF BREATH, (Reported) Albuterol Sulfate (Ventolin Hfa) 200 Puff/8 Gm Aers, 2 PUFF INH Q4H PRN for SHORTNESS OF BREATH, (Reported) Artificial Tears (Artificial Tears) 1.4 % Ana, 1 DROP OU QID PRN for DRY EYES, ( Reported) Sildenafil Citrate (Viagra) 50 Mg Tab, 50 MG PO PRN PRN for SEXUAL ACTIVITY, ( Reported) Allergies Coded Allergies: No Known Allergies (Verified , 09/09/02) TAWANNA IRVIN DO Feb 03, 2017 08:15
[2017-02-04] MEDS ORDERED: MOXIFLOXACIN 400 MG TAB PO SCH (06:00)
== END 2017-02-03 11:42 | disposition home health service (06) | DRG 194 ==
LOC: M ED 10:55 → EDBD 10:55 → M ED INP 15:28 → M MS5PR 17:35
PROVIDERS: ADMIT Internal Medicine; ATTEND General Practice
DX: J18.9 Pneumonia, unspecified organism (principal); J44.1 Chronic obstructive pulmonary disease with (acute) exacerbation; J44.0 Chronic obstructive pulmonary disease with (acute) lower respiratory infection; E03.9 Hypothyroidism, unspecified; J30.2 Other seasonal allergic rhinitis; M06.9 Rheumatoid arthritis, unspecified; K21.9 Gastro-esophageal reflux disease without esophagitis; D63.8 Anemia in other chronic diseases classified elsewhere; N18.9 Chronic kidney disease, unspecified; H91.93 Unspecified hearing loss, bilateral; Z87.891 Personal history of nicotine dependence; E78.5 Hyperlipidemia, unspecified; Z79.899 Other long term (current) drug therapy

== ENCOUNTER → 2017-07-17 | Outpatient (CLI) | payer OTHER | LOC: M CLY 10:47 | DX: R91.8 Other nonspecific abnormal finding of lung field (principal) | CPT/HCPCS: 71046 ==

== ENCOUNTER → 2017-08-01 | Outpatient (CLI) | payer OTHER | LOC: M CLY 13:13 | DX: J18.1 Lobar pneumonia, unspecified organism (principal); J84.10 Pulmonary fibrosis, unspecified; J44.9 Chronic obstructive pulmonary disease, unspecified | CPT/HCPCS: 71046 ==

== ENCOUNTER → 2017-08-28 | Outpatient (REF) | payer OTHER ==
[2017-08-28 17:36] LABS: THYROID STIMULATING HORMONE 0.077 uIU/ML (0.358-3.740)
[2017-08-28 17:36] LABS: IRON (FE) 70 UG/DL (65-175)
[2017-08-28 18:47] LABS: BASO % 0.4 % (0.0-1.0); EOS # 0.2 10^3/uL (0.0-0.50); EOS % 2.2 % (0.0-3.0); HEMATOCRIT 32.6 % (42.0-52.0); HEMOGLOBIN 10.4 g/dl (13.5-17.5); IMMATURE GRANULOCYTE % 0.4 % (0-3.0); LYMPH # 3.3 10^3/uL (1.5-4.5); LYMPH % 44.9 % (24.0-44.0); MEAN CORPUSCULAR HEMOGLOBIN 31.1 pg (27.0-33.0); MEAN CORPUSCULAR HGB CONC 31.9 g/dl (32.0-36.5); MEAN CORPUSCULAR VOLUME 97.6 fl (80.0-96.0); MONO # 0.8 10^3/uL (0.0-0.8); MONO % 10.2 % (0.0-5.0); NEUTROPHILS # 3.1 10^3/uL (1.8-7.7); NEUTROPHILS % 41.9 % (36.0-66.0); RED BLOOD COUNT 3.34 10^6/uL (4.30-6.10); RED CELL DISTRIBUTION WIDTH 13.2 % (11.5-14.5); WHITE BLOOD COUNT 7.4 10^3/uL (4.0-10.0)
[2017-08-28 21:04] LABS: IMMATURE PLATELET FRACTION % 3.5 % (0.0-10.9); PLATELET COUNT, AUTOMATED 98 10^3/uL (150-450)
== END ==
LOC: M SFHCCLAY 11:17
DX: E03.9 Hypothyroidism, unspecified (principal); J43.9 Emphysema, unspecified; D63.8 Anemia in other chronic diseases classified elsewhere
CPT/HCPCS: 83540

== ENCOUNTER 2019-03-07 06:35 | Emergency (ER) | payer MEDICARE, OTHER ==
[~2019-03-07] VITALS: Ht 172.7 cm; Wt 63.6 kg
[~2019-03-07 06:35] MED LIST changes: -ARTI99.0 OU; +ARTIDRO2 OU; +ATOR40TA75 PO; +AVEL1TAB3 PO; +BACITAB PO; -GEMF600T PO; +GEMF600T5 PO; -LEVA1TAB PO; +LEVA250T13 PO; -LORA10TA2 PO; +LORA10TA3 PO; +OMEP-172 PO; -OMEP20CA3 PO; +PRED10TA2 PO; +TYLE325T5 PO; +[UNRECOGNIZED DRUG - CODE] OU; -[UNRECOGNIZED DRUG - CODE] OU
[2019-03-07] MEDS ORDERED: ASPI81CH33 PO (06:53)
[2019-03-07] MEDS ORDERED: GUAI100L6 PO (06:53)
[2019-03-07 07:18] LABS: BASO # 0.1 10^3/uL (0.0-0.2); BASO % 0.3 % (0.0-1.0); EOS # 0.2 10^3/uL (0.0-0.5); EOS % 1.2 % (0.0-3.0); HEMATOCRIT 32.1 % (42.0-52.0); HEMOGLOBIN 10.5 g/dl (13.5-17.5); LYMPH # 3.7 10^3/uL (1.5-5.0); MEAN CORPUSCULAR HEMOGLOBIN 32.1 pg (27.0-33.0); MEAN CORPUSCULAR HGB CONC 32.7 g/dl (32.0-36.5); MEAN CORPUSCULAR VOLUME 98.2 fl (80.0-96.0); MONO # 1.5 10^3/uL (0.0-0.8); MONO % 9.5 % (0.0-5.0); NEUTROPHILS # 10.4 10^3/uL (1.5-8.5); NEUTROPHILS % 65.4 % (36.0-66.0); PLATELET COUNT, AUTOMATED 126 10^3/uL (150-450); RED BLOOD COUNT 3.27 10^6/uL (4.30-6.10); WHITE BLOOD COUNT 15.9 10^3/uL (4.0-10.0)
[2019-03-07 07:46] LABS: ABG BASE EXCESS -3.9 (-2.0-2.0); ABG O2 SATURATION 95.5 % (95.0-99.0); ABG PARTIAL PRESSURE CO2 32.2 mmHg (35.0-45.0); ABG PARTIAL PRESSURE O2 74.4 mmHg (75.0-100.0); ABG STANDARD HCO3 21.2 MEQ/L (22.0-26.0); ABG TOTAL CO2 20.9 MEQ/L (23.0-31.0)
--- NOTE | 2019-03-07 07:48 | REP ---
Clinical: Cough and dyspnea. Comparison: 08/01/2017, 02/01/2017 Findings: Mediastinum and cardiac silhouette are normal. Extensive pleuroparenchymal changes primarily involving the right hemithorax and specifically the right apex and right base are again noted. There is chronic interstitial changes are also appreciated bilaterally. No obvious focal consolidation or effusion. No pneumothorax. Skeletal structures stable. Impression: Diffuse chronic changes. No obvious new acute process. Electronically Signed by Kvng Min MD 03/07/2019 07:39 A
[2019-03-07 07:50] LABS: BLOOD UREA NITROGEN 25 MG/DL (7-18); CALCIUM LEVEL 8.6 MG/DL (8.8-10.2); CARBON DIOXIDE LEVEL 22 MEQ/L (21-32); CHLORIDE LEVEL 113 MEQ/L (98-107); CK-MB VALUE MASS 1.9 NG/ML (<3.6); CPK CREATINE PHOSPHOKINASE 67 U/L (39-308); CREATININE FOR GFR 1.73 MG/DL (0.70-1.30); GLOMERULAR FILTRATION RATE 39.9 (>35); GLUCOSE, FASTING 97 MG/DL (70-100); MB/CK RELATIVE INDEX 2.84 (< OR =4); NT-PRO BNP 423 PG/ML (<450); POTASSIUM SERUM 4.5 MEQ/L (3.5-5.1); SODIUM LEVEL 143 MEQ/L (136-145); TROPONIN I < 0.02 NG/ML (< 0.10)
[2019-03-07 09:03] LABS: INFLUENZA A AMPLIFICATION NEGATIVE (NEGATIVE); INFLUENZA B AMPLIFICATION NEGATIVE (NEGATIVE)
[2019-03-07 10:42] LABS: CK-MB VALUE MASS 1.7 NG/ML (<3.6); CPK CREATINE PHOSPHOKINASE 68 U/L (39-308); TROPONIN I < 0.02 NG/ML (< 0.10)
[2019-03-07 11:03] LABS: ALBUMIN 2.9 GM/DL (3.2-5.2); ALT/SGPT 23 U/L (12-78); BILIRUBIN,DIRECT 0.3 MG/DL (0.0-0.2); BILIRUBIN,TOTAL 0.6 MG/DL (0.2-1.0); LIPASE 144 U/L (73-393); TOTAL PROTEIN 7.3 GM/DL (6.4-8.2)
[2019-03-07 12:00] VITALS: BP 109/60
--- NOTE | 2019-03-08 14:21 | ECGEPIP ---
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
--- NOTE | 2019-03-08 14:34 | ECGEPIP ---
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
== END 2019-03-07 12:20 | disposition home or self-care (01) ==
LOC: M ED 06:35
DX: R60.0 Localized edema (principal); R77.0 Abnormality of albumin; J44.9 Chronic obstructive pulmonary disease, unspecified; J94.8 Other specified pleural conditions; I49.9 Cardiac arrhythmia, unspecified; K21.9 Gastro-esophageal reflux disease without esophagitis; Z79.82 Long term (current) use of aspirin; Z79.899 Other long term (current) drug therapy

== ENCOUNTER → 2019-04-04 | Outpatient (CLI) | payer MEDICARE ==
[~2019-04-04] MED LIST changes: -ARTIDRO2 OU; +ASPI81CH33 PO; +GUAI100L6 PO; -OMEP-172 PO; +OMEP1CAP73 PO; +POLYOPD OU
--- NOTE | 2019-04-05 01:38 | REP ---
Clinical: Acute lower back pain. Technique: AP, lateral, bilateral oblique and coned-down views of the lumbosacral spine. Findings: Lateral view best demonstrates compression deformity at L1 with approximately 45% loss of vertebral body height which appears to be mildly progressed when compared to lateral chest x-ray dated 08/01/2017. Mild compression deformity involving L5 depression along the superior endplate is also noted and likely chronic. Underlying osteopenia and further degenerative changes include endplate sclerosis, hypertrophic facet changes and disc space narrowing primarily involving L5-L1. Impression: Osteopenia and degenerative changes with presumed nonacute compression deformities at L1 and L5. Electronically Signed by Kvng Min MD 04/05/2019 01:29 A
== END ==
LOC: M CLY 14:20
PROVIDERS: ATTEND Family Medicine
DX: M85.88 Other specified disorders of bone density and structure, other site (principal); M51.37 Other intervertebral disc degeneration, lumbosacral region; M54.5 Low back pain
CPT/HCPCS: 72110; G0463